=== PATIENT | male | born 1990 ===

== ENCOUNTER 2022-02-03 06:57 | Day surgery (SDC) | payer OTHER ==
[~2022-02-03] VITALS: Ht 180.3 cm; Wt 83.9 kg
[~2022-02-03 06:57] MED LIST: IBUPROFEN600 MG PO
[2022-02-03] MEDS ORDERED: TORADOL PO (09:54)
[2022-02-03 11:03] VITALS: BP 121/74
== END 2022-02-03 11:28 | disposition home or self-care (01) | DRG 352 ==
LOC: ORM 06:57
PROVIDERS: ATTEND Surgery
PROC: 0YU64JZ Supplement Left Inguinal Region with Synthetic Substitute, Percutaneous Endoscopic Approach (ICD-10-PCS; principal; 2022-02-03)
DX: K40.90 Unilateral inguinal hernia, without obstruction or gangrene, not specified as recurrent (principal); D17.6 Benign lipomatous neoplasm of spermatic cord
CPT/HCPCS: C1781; C9290; J0131